=== PATIENT | male | born 1960 | race Caucasian/White ===

== ENCOUNTER → 2017-10-04 | Outpatient (CLI) | payer BC ==
--- NOTE | 2017-10-05 10:38 | MR ---
EXAMINATION TYPE: MR brain wo/w con DATE OF EXAM: 10/04/2017 COMPARISON: NONE HISTORY: Disorder of cranial nerves per order. Left-sided facial numbness for one year with left tinn itus per order and patient. TECHNIQUE: Multiplanar, multisequence images of the brain and brainstem is performed without and with IV contras t, utilizing 10 mL intravenous Gadavist . FINDINGS: Diffusion weighted images demonstrate no evidence of a recent infarct or other diffusion ab normality. There is no worrisome extra-axial fluid collection. The ventricular system and cisternal spaces are normal in size and appearance. The brain volume is age appropriate. There are occasional scattered foci of T2 hyperintensity seen throughout the white matter bilaterally. Approximately 7-10 scattered lesions are seen. For reference there is 9 x 6 mm left frontal periventricular lesion axia l image 17. All other lesions are smaller measuring 3 mm or smaller in size. For reference 2 punctate 1 to 2 mm lesions are seen left parietal region axial image 19. Midline structures demonstrate normal morphology. The craniocervical junction appears within normal limits. Post contrast images demonstrate no abnormal enhancement. The dural venous sinuses appear pa tent. Mild mucosal thickening involving ethmoid sinuses bilaterally is present. Remainder paranasal s inuses are clear. The globes are intact bilaterally.. IMPRESSION: Mild nonspecific white matter changes are felt to most likely basis of products of chroni c small vessel ischemic change. No suspicious enhancement is noted.
== END | disposition home or self-care (01) ==
LOC: RADMRIMAIN 19:32
PROVIDERS: ATTEND Otolaryngology
DX: R90.82 White matter disease, unspecified (principal)
CPT/HCPCS: 70553; A9581

== ENCOUNTER → 2018-06-11 | Outpatient (CLI) | payer BC ==
--- NOTE | 2018-06-12 09:03 | MR ---
EXAMINATION TYPE: MR brain wo/w con DATE OF EXAM: 06/11/2018 COMPARISON: Prior brain MRI 10/04/2017 HISTORY: Anesthesia of skin TECHNIQUE: Multiplanar, multisequence images of the brain and brainstem is performed without and with IV contras t, utilizing 10 mL intravenous Gadavist . FINDINGS: Diffusion weighted images demonstrate no evidence of a recent infarct or other diffusion ab normality. There is no extra-axial fluid collection or significant interval change in white matter s ignal abnormality, some scattered deep white matter hyperintensities are present on inversion recover y T2-weighted sequences as on prior exam, approximately 5 lesions. The ventricular system and cister nal spaces are normal in size and appearance. The brain volume is age appropriate. Midline structures demonstrate normal morphology. The craniocervical junction appears within normal limits. Post contrast images demonstrate no abnormal enhancement. The dural venous sinuses appear pa tent. The visualized sinuses are remarkable for mucosal thickening in the ethmoid air cells, maxillar y sinuses and frontal sinus and the globes are intact. IMPRESSION: Stable brain MRI, no acute abnormality
== END ==
LOC: RADMRIMAIN 18:04
PROVIDERS: ATTEND Family Medicine
DX: R20.0 Anesthesia of skin (principal)
CPT/HCPCS: 70553; A9585

== ENCOUNTER → 2018-10-22 | Outpatient (CLI) | payer BC ==
--- NOTE | 2018-10-23 00:48 | MR ---
EXAMINATION TYPE: MR cervical spine wo con DATE OF EXAM: 10/22/2018 COMPARISON: None HISTORY: Early Cord Compression, Myelopathy TECHNIQUE: Multiplanar, multisequence images of the cervical spine were acquired. Cervical vertebra have normal alignment. There is moderate narrowing of disc spaces at C5-6 and C6-7 with some spurring of the endplates. There is small posterior disc bulging at C4-5 and C6-7. Cervical spinal cord has normal signal pattern. There is no edema. There is developmentally large spinal daisy l. The smallest segment of the spinal canal is 11 mm. Brainstem is intact. Disc herniation at C6-7 is slightly to the left side. There is no cervical hero delisa mass. There is no focal bone destruction. IMPRESSION: Mild posterior central and left side C6-7 disc herniation without spinal stenosis. Developmentally la rge spinal canal. Spondylosis at C5-6 and C6-7. There is no evidence of cord compression.
== END | disposition home or self-care (01) ==
LOC: RADMRIMAIN 17:55
PROVIDERS: ATTEND Psychiatry & Neurology Neurology
DX: M50.223 Other cervical disc displacement at C6-C7 level (principal); M47.812 Spondylosis without myelopathy or radiculopathy, cervical region
CPT/HCPCS: 72141

== ENCOUNTER 2020-12-23 08:53 | Day surgery (SDC) | payer BC ==
[2020-12-21 08:29] VITALS: BMI 29.9
[~2020-12-23 08:53] MED LIST: LACTATED RINGERS 1,000 ML IV SCH; LIDOCAINE 1% (10MG/ML) FOR IV START INTRADERMA PRN
[2020-12-23 09:58] VITALS: RESP 16; TEMP 96.6
[2020-12-23] MEDS ORDERED: LIDOCAINE 1% (10MG/ML) FOR IV START INTRADERMA ONE (09:59)
[2020-12-23] MEDS ORDERED: PROPOFOL 10 MG/ML 20 ML VIAL IV ONE (11:06)
--- NOTE | 2020-12-23 11:23 | P.PCN ---
Date of Procedure: 12/23/20 Procedure(s) Performed: BRIEF HISTORY: Patient is a 60-year-old pleasant male scheduled for an elective colonoscopy as a part of screening for colorectal neoplasia PROCEDURE PERFORMED: Colonoscopy snare polypectomy PREOPERATIVE DIAGNOSIS: Screening for colon cancer. IV sedation per Anesthesia. PROCEDURE: After informed consent was obtained, the patient, was brought into the endoscopy unit. IV sedation was administered by Anesthesia under continuous monitoring. Digital rectal examination was normal. Initially the Olympus CF-160 flexible video colonoscope was then inserted in the rectum, gradually advanced into the cecum without any difficulty. Careful examination was performed as the scope was gradually being withdrawn. Ileocecal valve and the appendiceal orifice were visualized and appeared normal. Prep was excellent. Mucosa of the cecum, ascending colon, transverse colon, appeared normal. In the descending colon there were 2 polyps measuring 5 limited in size which were removed by snare polypectomy. Rest of the descending colon, sigmoid colon, and rectum appeared normal. Retroflexion was performed in the rectum and no lesions were seen. The patient tolerated the procedure well. IMPRESSION: 5 mm 2 descending colon polyps status post polypectomy Rest of the colon appeared normal . RECOMMENDATIONS: Findings of this examination were discussed with the patient as well as his family. She was advised to follow with the biopsy results and if the biopsy reveals adenoma he can have a repeat coloscopy in 5 years
[2020-12-23 11:48] VITALS: BP 137/89; PULSE 61
== END 2020-12-23 12:01 | disposition home or self-care (01) ==
LOC: ORWHC2ENDO 08:53
PROVIDERS: ATTEND Internal Medicine Gastroenterology
DX: Z12.11 Encounter for screening for malignant neoplasm of colon (principal); D12.4 Benign neoplasm of descending colon
CPT/HCPCS: 45385; 88305; J2704

== ENCOUNTER 2024-04-14 17:00 | Observation (INO) | payer MEDICARE, BC ==
--- NOTE | 2024-04-14 17:22 | ED ---
Chest Pain HPI - General Source: patient, RN notes reviewed Mode of arrival: ambulatory Limitations: no limitations - History of Present Illness MD Complaint: chest pain <Jasmina Zamora - Last Filed: 04/14/24 17:20> - General Source: patient, RN notes reviewed Mode of arrival: ambulatory Limitations: no limitations <Neal Thurman - Last Filed: 04/14/24 21:25> - General Chief Complaint: Chest Pain Stated Complaint: chest pain Time Seen by Provider: 04/14/24 17:15 - History of Present Illness Initial Comments: Quick Note: This is a 63-year-old male who presents to the emergency department for chest pain. States that it has been occurring intermittently over the last week but today it has been constant. Pain is described as a pressure sensation in the center of his chest radiating into the back. When this first started he noticed that exercise seem to make it worse, so he tried to stop exercising. Denies any history of heart attacks or cardiac issues. (Jasmina Zamora) Patient is a 63-year-old male present to the emergency department with concerns of chest discomfort. Onset of symptoms was a week ago. Discomfort has been coming and going this past week more constant today. Discomfort was more severe earlier, mild at this time. Currently rated 3/10. Discomfort feels like tightness. No associated dyspnea, nausea, or diaphoresis. There is some radiation towards the back. No history of similar symptoms previously. No history of previous cardiac disease. (Neal Thurman) - Related Data Home Medications Medication Instructions Recorded Confirmed Cholecalciferol (Vitamin D3) 125 mcg PO DAILY 12/21/20 12/23/20 [Vitamin D3 (125 MCG = 5,000 IU)] Gabapentin 300 mg PO HS PRN 12/21/20 12/23/20 Levothyroxine Sodium [Synthroid] 150 mcg PO DAILY 12/21/20 12/23/20 Magnesium 200 mg PO DAILY 12/21/20 12/23/20 [place]-3 Fatty Acids/Fish Oil [Fish 1 each PO DAILY 12/21/20 12/23/20 Oil 1,000 mg Softgel] Allergies Allergy/AdvReac Type Severity Reaction Status Date / Time No Known Allergies Allergy Verified 04/14/24 17:15 Review of Systems ROS Other: All systems not noted in ROS Statement are negative. <Jasmina Zamora - Last Filed: 04/14/24 17:20> ROS Other: All systems not noted in ROS Statement are negative. Constitutional: Denies: fever Eyes: Denies: eye pain ENT: Denies: ear pain Respiratory: Denies: cough, dyspnea Cardiovascular: Reports: as per HPI, chest pain Endocrine: Denies: fatigue Gastrointestinal: Denies: abdominal pain Neurological: Denies: headache, weakness <Neal Thurman - Last Filed: 04/14/24 21:25> ROS Statement: Those systems with pertinent positive or pertinent negative responses have been documented in the HPI. EKG Findings - EKG Results: EKG: interpreted by ERMD (Left axis. Nonspecific intraventricular conduction delay.), sinus rhythm, normal ST/T <Neal Thurman - Last Filed: 04/14/24 21:25> Past Medical History Past Medical History: Thyroid Disorder Additional Past Medical History / Comment(s): "tingling throughout whole body" taking gabapentin History of Any Multi-Drug Resistant Organisms: None Reported Past Surgical History: Hernia Repair Additional Past Surgical History / Comment(s): colonoscopy Past Anesthesia/Blood Transfusion Reactions: No Reported Reaction Past Psychological History: No Psychological Hx Reported Smoking Status: Former smoker Past Alcohol Use History: Occasional Past Drug Use History: None Reported <Jasmina Zamora - Last Filed: 04/14/24 17:20> General Exam Limitations: no limitations <Jasmina Zamora - Last Filed: 04/14/24 17:20> Limitations: no limitations General appearance: alert, in no apparent distress Head exam: Present: normocephalic Eye exam: Present: normal appearance Neck exam: Present: normal inspection Respiratory exam: Present: normal lung sounds bilaterally. Absent: chest wall tenderness Cardiovascular Exam: Present: regular rate, normal rhythm, normal heart sounds Expanded Peripheral pulses: 2+: Radial (R), Radial (L), Posterior Tibialis (R), Posterior Tibialis (L) GI/Abdominal exam: Present: soft. Absent: tenderness Extremities exam: Present: normal inspection. Absent: pedal edema, calf tenderness Neurological exam: Present: alert Psychiatric exam: Present: normal affect, normal mood Skin exam: Present: normal color <Neal Thurman - Last Filed: 04/14/24 21:25> - General Exam Comments Initial Comments: Visual Physical Exam Vital signs reviewed General: Well-appearing, nontoxic, no acute distress. Head: Normocephalic, atraumatic Eyes: PERRLA, EOMI ENT: Airway patent Chest: Nonlabored breathing Skin: No visual rash, normal skin tone Neuro: Alert and oriented 3 Musculoskeletal: No gross abnormalities (Jasmina Zamora) Course Vital Signs 04/14/24 04/14/24 04/14/24 17:11 18:46 18:53 Temperature 97.8 F Pulse Rate 65 65 Pulse Rate [ 67 Hair Tinter ] Respiratory 18 12 Rate Blood Pressure 126/80 138/77 O2 Sat by Pulse 99 98 Oximetry 04/14/24 20:41 Temperature Pulse Rate 60 Pulse Rate [ Hair Tinter ] Respiratory 17 Rate Blood Pressure 134/60 O2 Sat by Pulse 97 Oximetry Chest Pain MDM <Jasmina Zamora - Last Filed: 04/14/24 17:20> <Neal Thurman - Last Filed: 04/14/24 21:25> - MDM I performed the QuickNote portion of this chart. Signed Jasmina Zamora PA-C. (Jasmina Zamora) Was pt. sent in by a medical professional or institution ([facility], [facility], urgent care, hospital, or group home...) When possible be specific @ -No Did you speak to anyone other than the patient for history (EMS, parent, family, police, friend...)? What history was obtained from this source @ -No Did you review nursing and triage notes (agree or disagree)? Why? @ -I reviewed and agree with nursing and triage notes Were old charts reviewed (outside hosp., previous admission, EMS record, old EKG, old radiological studies, urgent care reports/EKG's, group home records)? Report findings @ -No old charts were reviewed Differential Diagnosis (chest pain, altered mental status, abdominal pain women, abdominal pain men, vaginal bleeding, weakness, fever, dyspnea, syncope, headache, dizziness, GI bleed, back pain, seizure, CVA, palpatations, mental health, musculoskeletal)? @ -Differential Chest Pain: Stable Angina, Unstable Angina, STEMI, NSTEMI Aortic Dissection, Pneumothorax, Musculoskeletal, Esophageal Spasm GERD, Cholecystitis, Pancreatitis, Zoster, this is not meant to be an all-inclusive list. EKG interpreted by me (3pts min.). @ -As above X-rays interpreted by me (1pt min.). @ -Chest x-ray shows no acute process CT interpreted by me (1pt min.). @ -None done U/S interpreted by me (1pt. min.). @ -None done What testing was considered but not performed or refused? (CT, X-rays, U/S, labs)? Why? @ -None What meds were considered but not given or refused? Why? @ -None Did you discuss the management of the patient with other professionals (professionals i.e. DrHu, PA, [facility], lab, RT, psych nurse, social media director, supervisor drying and winding, teacher, chief strategy officer, lining caser)? Give summary @ -Case was discussed with Dr. Paredes who will admit covering Dr. Woodward Was smoking cessation discussed for >3mins.? @ -No Was critical care preformed (if so, how long)? @ -No Were there social determinants of health that impacted care today? How? (Homelessness, low income, unemployed, alcoholism, drug addiction, transporta tion, low edu. Level, literacy, decrease access to med. care, care home, rehab)? @ -No Was there de-escalation of care discussed even if they declined (Discuss DNR or withdrawal of care, Hospice)? DNR status @ -No What co-morbidities impacted this encounter? (DM, HTN, Smoking, COPD, CAD, Cancer, CVA, ARF, Chemo, Hep., AIDS, mental health diagnosis, sleep apnea, morbid obesity)? @ -None Was patient admitted / discharged? Hospital course, mention meds given and route, prescriptions, significant lab abnormalities, going to OR and other pertinent info. @ -Patient presents with chest discomfort. Patient reevaluated and resting comfortably in bed. Patient updated on results and plan. Patient will be admitted with cardiac consult. Admission orders written. Undiagnosed new problem with uncertain prognosis? @ -No Drug Therapy requiring intensive monitoring for toxicity (Heparin, Nitro, Insulin, Cardizem)? @ -No Were any procedures done? @ -No Diagnosis/symptom? @ -Chest pain Acute, or Chronic, or Acute on Chronic? @ -Acute Uncomplicated (without systemic symptoms) or Complicated (systemic symptoms)? @ -Default Side effects of treatment? @ -No Exacerbation, Progression, or Severe Exacerbation? @ -No Poses a threat to life or bodily function? How? (Chest pain, [place], [place], pneumonia, PE, COPD, DKA, ARF, appy, cholecystitis, CVA, Diverticulitis, Homicidal, Suicidal, threat to staff... and all critical care pts) @ -Threat to cardiac function (Neal Thurman) Disposition <Jasmina Zamora - Last Filed: 04/14/24 17:20> Is patient prescribed a controlled substance at d/c from ED?: No Time of Disposition: 21:25 <Neal Thurman - Last Filed: 04/14/24 21:25> Clinical Impression: Chest pain Disposition: ADMITTED IP TO THIS HOSP Referrals: Vin Woodward MD [Primary Care Provider] - 1-2 days
--- NOTE | 2024-04-14 17:48 | XR ---
EXAMINATION TYPE: XR chest 2V DATE OF EXAM: 04/14/2024 5:43 PM COMPARISON: None TECHNIQUE: XR chest 2V Frontal and lateral views of the chest. CLINICAL INDICATION:Male, 63 years old with history of Chest Pain; FINDINGS: Lungs/Pleura: There is no evidence of pleural effusion, focal consolidation, or pneumothorax. Pulmonary vascularity: Unremarkable. Heart/mediastinum: Cardiomediastinal silhouette is unremarkable. Musculoskeletal: No acute osseous pathology. IMPRESSION: No acute cardiopulmonary disease/process. [facility], , 04/14/2024 5:45 PM
[2024-04-14] MEDS: ASPIRIN 81 MG PO STA (18:49)
[2024-04-14] MEDS: NITROGLYCERIN OINT 1 INCH/GM PACKET TOPICAL STA (18:50)
[2024-04-14 19:01] LABS: ALT 32 U/L (4-49); AST 29 U/L (17-59); African American GFR (CKD) 85 (>60 ml/min/1.73 sqM); Albumin 4.4 g/dL (3.5-5.0); Alkaline Phosphatase 59 U/L (38-126); Anion Gap 8 mmol/L; Blood Urea Nitrogen 24 mg/dL (9-20); Calcium 9.6 mg/dL (8.4-10.2); Carbon Dioxide 29 mmol/L (22-30); Chloride 101 mmol/L (98-107); Glucose 95 mg/dL (74-99); Magnesium 2.4 mg/dL (1.6-2.3); Non-African American GFR(CKD) 74 (>60 ml/min/1.73 sqM); Potassium 3.9 mmol/L (3.5-5.1); Sodium 138 mmol/L (137-145); Total Bilirubin 0.5 mg/dL (0.2-1.3); Total Protein 7.2 g/dL (6.3-8.2)
[2024-04-14 19:20] LABS: Partial Thromboplastin Time 25.5 sec (22.0-30.0); Prothrombin Time 10.8 sec (10.0-12.5)
[2024-04-14 19:26] LABS: Basophils % (A) 0 %; Eosinophils # (A) 0.2 k/uL (0-0.7); Eosinophils % (A) 3 %; HCT 45.3 % (39.0-53.0); Lymphocytes # (A) 2.2 k/uL (1.0-4.8); Lymphocytes % (A) 35 %; MCH 29.7 pg (25.0-35.0); MCHC 33.2 g/dL (31.0-37.0); MCV 89.3 fL (80.0-100.0); Mean Platelet Volume 7.3; Monocytes # (A) 0.4 k/uL (0-1.0); Monocytes % (A) 7 %; Neutrophils # (A) 3.2 k/uL (1.3-7.7); Neutrophils % (A) 52 %; Platelet Count 227 k/uL (150-450); RBC 5.07 m/uL (4.30-5.90); RDW 12.7 % (11.5-15.5); WBC 6.1 k/uL (3.8-10.6)
[2024-04-14] MEDS ORDERED: NITROGLYCERIN SL TABS 0.4 MG TAB SUBLINGUAL PRN (21:25)
[2024-04-14] MEDS: NITROGLYCERIN OINT 1 INCH/GM PACKET TOPICAL SCH (23:40)
[2024-04-15] MEDS ORDERED: GABAPENTIN 300 MG CAP PO PRN (02:59)
--- NOTE | 2024-04-15 03:05 | P.HPIM ---
History of Present Illness H&P Date: 04/14/24 Patient is a 63-year-old male with past medical history significant for hypothyroidism, hyperlipidemia, and generalized neuropathy presenting to the emergency department today for chest pain. He reports intermittent chest pain for about 10 days, rates it 8/10, states that it is in the center and radiates to the left, to his back, and into his left arm, describes it as tightness/pressure. He notes that the pain seems to have worsened after eating and states that it sometimes feels like heartburn but not relieved by Tums. He denies diaphoresis, nausea, any associated symptoms. He denies any relieving factors. He admits to chest pain at rest or with minimal exertion. Chest pain at the time of the interview is 2/10. He denies a cardiac history. He denied recent LE swelling/pain or recent travel. Reports that the pain is non- pleuritic. He recently started taking a statin shortly before the chest pain symptoms started. He denies fever/chills, nausea/vomiting, dyspnea, abdominal pain, myalgias, hematuria, hematochezia/melena. Initial vitals: BP 126/80, CT 65 bpm, 97.8 F, 99% on room air Initial labs: WBC 6.1, hemoglobin 15, platelets 227, D-dimer 0.18, sodium 138, potassium 3.9, chloride 101, BUN 24, creatinine 1.06, magnesium 2.4, troponin x 2: <0.012 Initial EKG: Normal sinus rhythm with ventricular rate 69 bpm, left axis deviation, wide QRS 136 ms, QTc 439 ms ED documentation reviewed. Given aspirin 324 mg p.o. x 1, Nitro-Bid ointment 1 inch topical x 1 Review of systems: Pertinent positives and negatives as discussed in HPI, a complete review of systems was performed and all other systems are negative. Social history: Tobacco: Quit 40 years ago Alcohol: 2-3 beers on weekends Recreational drugs: Marijuana gummies for sleep 1x/week Travel: None reported Sick contacts: None reported Physical examination: Vital signs reviewed General: Nontoxic, no distress, appears stated age, well-appearing, overweight Derm: Warm, dry, intact, no cyanosis Head: Atraumatic, normocephalic, symmetric Eyes: EOMI, anicteric sclera, PERRL Ears: Normal appearing, no external lesions, hearing intact Nose: Normal appearing, no external lesions Mouth: No lip lesion, mucus membranes moist, no tonsilar hypertrophy or exudate Neck: Supple, without lesions, trachea midline Cardiovascular: S1-S2 regular, no murmur, no pedal edema Lungs: CTA bilateral, no wheezes, no rhonchi, no rales, no accessory muscle use Abdominal: Soft, non-tender to palpation, bowel sounds present Extremities: Muscle strength 5/5 in all extremities, radial pulses 2+ bilateral, posterior tibial pulses 2+ bilateral Neuro: Alert, oriented x 4, gross neurological examination did not reveal any focal deficits. Cranial nerves II to XII grossly intact. Psych: Appropriate affect and mood Assessment and Plan: Patient is a 63-year-old male with a past medical history significant for hypothyroidism, hyperlipidemia, neuropathy admitted for chest pain. Active #. Atypical chest pain, rule out ACS Troponin x 2: <0.012 D-dimer 0.18 Monitor vital signs Continue telemetry monitoring Trend troponin Obtaining 2D echo Obtain lipid panel Continue with nitro sublingual 0.4 mg as needed for chest pain Cardiology consulted Continue with aspirin 81 mg p.o. daily (received 325 mg p.o. x 1 in the ED) Begin atorvastatin 80 mg daily #. Hypermagnesemia Magnesium 2.4 Monitor magnesium Hold home magnesium supplements Chronic #. Hypothyroidism Continue Synthroid 150 mcg p.o. daily DVT prophylaxis: Lovenox 40 mg subcutaneous daily The patient is admitted with an anticipated less than 2 midnight stay for evaluation of chest pain CODE STATUS: Full code Anticipated discharge place: Pending clinical course Past Medical History Past Medical History: Thyroid Disorder Additional Past Medical History / Comment(s): "tingling throughout whole body" taking gabapentin History of Any Multi-Drug Resistant Organisms: None Reported Past Surgical History: Hernia Repair Additional Past Surgical History / Comment(s): colonoscopy Past Anesthesia/Blood Transfusion Reactions: No Reported Reaction Past Psychological History: No Psychological Hx Reported Smoking Status: Former smoker Past Alcohol Use History: Occasional Past Drug Use History: None Reported Medications and Allergies Home Medications Medication Instructions Recorded Confirmed Type Cholecalciferol (Vitamin D3) 125 mcg PO DAILY 12/21/20 12/23/20 History [Vitamin D3 (125 MCG = 5,000 IU)] Gabapentin 300 mg PO HS PRN 12/21/20 12/23/20 History Levothyroxine Sodium [Synthroid] 150 mcg PO DAILY 12/21/20 12/23/20 History Magnesium 200 mg PO DAILY 12/21/20 12/23/20 History [place]-3 Fatty Acids/Fish Oil [Fish 1 each PO DAILY 12/21/20 12/23/20 History Oil 1,000 mg Softgel] Allergies Allergy/AdvReac Type Severity Reaction Status Date / Time No Known Allergies Allergy Verified 04/14/24 17:15 Physical Exam Vitals: Vital Signs Temp Pulse Pulse Resp BP Pulse Ox 04/14/24 20:41 60 17 134/60 97 04/14/24 18:53 67 04/14/24 18:46 65 12 138/77 98 04/14/24 17:11 97.8 F 65 18 126/80 99 Intake and Output 04/14/24 04/14/24 04/14/24 06:59 14:59 22:59 Other: Weight 92.079 kg Results CBC & Chem 7: 04/14/24 18:37 04/14/24 18:37 Labs: Abnormal Lab Results - Last 24 Hours (Table) 04/14/24 Range/Units 18:37 BUN 24 H (9-20) mg/dL Magnesium 2.4 H (1.6-2.3) mg/dL Thrombosis Risk Factor Assmnt - DVT/VTE Prophylaxis DVT/VTE Prophylaxis: Pharmacologic Prophylaxis ordered - Choose All That Apply Each Factor Represents 1 point: Obesity (BMI >25) Each Risk Factor Represents 2 Points: Age 61-74 years Thrombosis Risk Factor Assessment Total Risk Factor Score: 3 Thrombosis Risk Factor Assessment Level: Moderate Risk
[2024-04-15] MEDS: ATORVASTATIN 80 MG TAB PO STA (04:48)
[2024-04-15] MEDS: LEVOTHYROXINE 75 MCG TAB PO SCH (06:43)
[2024-04-15 08:54] LABS: Chol/HDL Ratio 3.81 Ratio; LDL Cholesterol,Calculated 82.7 mg/dL (0.0-131.0); VLDL Calculation 19.78 mg/dL (5.00-40.00)
[2024-04-15] MEDS ORDERED: ASPIRIN 325 MG TAB PO SCH (09:00)
[2024-04-15 09:05] VITALS: RESP 16
[2024-04-15] MEDS: ENOXAPARIN 40 MG/0.4 ML SYRINGE SQ SCH (09:26)
[2024-04-15] MEDS: ASPIRIN 81 MG PO SCH (09:26)
--- NOTE | 2024-04-15 11:07 | P.CRDCN ---
History of Present Illness History of present illness: HISTORY OF PRESENT ILLNESS: This is a 63-year-old male with a past medical history significant for hyperlipidemia, hypothyroidism, former nicotine dependence, occasional alcohol use, and occasional marijuana use. Patient does not follow with a family law specialist. We have been asked to see the patient in consultation for chest pain. Patient examined at the bedside in the emergency room. Patient states his cholesterol levels have been borderline and initially he was not wanting to be started on a statin. He underwent CT calcium scoring and 03/30/2024 with a total calcium score of 488.8. He was started on Lipitor 20 mg daily by his PCP. He states since getting his CAT scan done he has been having chest discomfort on and off. He states the pain is in the middle of his chest and sometimes goes into his back and sometimes into his left arm. He states yesterday after breakfast he be shereen to have the discomfort. He states that he took Tums with no relief. He describes it as a burning type sensation. He states it does not seem to be exertionally related. He is a non-smoker. He reports occasional alcohol use. He also reports occasional marijuana use in the form of Gummies to help him sleep. He denies any family history of premature coronary artery disease DIAGNOSTICS: - EKG reveals sinus mechanism with no signs of acute ischemia. - Chest xray negative for acute process. - Laboratory data: WBC 6.1. Hemoglobin 15.0. Platelet count 227. D-dimer 0.18. Sodium 138. Potassium 3.9. BUN 24. Creatinine 1.06. Magnesium 2.4. Troponin negative x 3. - Current home cardiac medications include Lipitor 20 mg at night - No previous echocardiogram, stress test, or cardiac catheterization available in EMR for review REVIEW OF SYSTEMS: At the time of my exam: CONSTITUTIONAL: Denies fever or chills. HEENT: Denies blurred vision, vision changes, or eye pain. Denies hemoptysis CARDIOVASCULAR: Denies chest pain. Denies orthopnea. Denies PND. Denies palpitations RESPIRATORY: Denies shortness of breath. GASTROINTESTINAL: Denies abdominal pain. Denies nausea or vomiting. HEMATOLOGIC: Denies bleeding disorders. GENITOURINARY: Denies any blood in urine. SKIN: Denies pruitis. Denies rash. PHYSICAL EXAM: VITAL SIGNS: Reviewed. GENERAL: Well-developed in no acute distress. HEENT: Head is normocephalic. Pupils are equal, round. Sclerae anicteric. Mucous membranes of the mouth are moist. Neck supple. No JVD or thyromegaly LUNGS: Respirations even and unlabored. Lungs essentially clear to auscultation bilaterally. HEART: Regular rate and rhythm. S1 and S2 heard. ABDOMEN: Soft. Nondistended. Nontender. EXTREMITIES: Normal range of motion. No clubbing or cyanosis. Peripheral pulses intact. No lower extremity edema NEUROLOGIC: Awake and alert. Oriented x 3. ASSESSMENT: Chest pain, troponin negative x [address] calcium score of 48.8, performed on 03/30/2024 Hyperlipidemia Hypothyroidism Former nicotine dependence Occasional alcohol use Occasional marijuana use PLAN: An acute coronary event has been ruled out Obtain 2D echo to assess cardiac structure and function Resume home cardiac medications including Lipitor 20 mg at night Decrease aspirin to 81 mg daily Patient to undergo stress echocardiogram today Abstinence from marijuana recommended If stress echocardiogram is negative, patient may be discharged home from a cardiac standpoint Patient to follow-up in the office postdischarge with Dr. Briceno Nurse practitioner note has been reviewed by physician. Signing provider agrees with the documented findings, assessment, and plan of care documented by RETORT CONDENSER ATTENDANT as a scribe. Past Medical History Past Medical History: Thyroid Disorder Additional Past Medical History / Comment(s): "tingling throughout whole body" taking gabapentin History of Any Multi-Drug Resistant Organisms: None Reported Past Surgical History: Hernia Repair Additional Past Surgical History / Comment(s): colonoscopy Past Anesthesia/Blood Transfusion Reactions: No Reported Reaction Past Psychological History: No Psychological Hx Reported Smoking Status: Former smoker Past Alcohol Use History: Occasional Past Drug Use History: None Reported Medications and Allergies Home Medications Medication Instructions Recorded Confirmed Type Gabapentin 300 mg PO DAILY PRN 12/21/20 04/15/24 History Atorvastatin [Lipitor] 20 mg PO HS 04/15/24 04/15/24 History Fish Oil(Unknown Dose) 1 cap PO DAILY 04/15/24 04/15/24 History Levothyroxine Sodium [Synthroid] 125 mcg PO DAILY 04/15/24 04/15/24 History Turmeric(Unknown Dose) 1 tab PO DAILY 04/15/24 04/15/24 History Vitamin E (Dl,Tocopheryl Acet) 2,000 unit PO DAILY 04/15/24 04/15/24 History [Vitamin E (1000 Iu = 450 MG)] Allergies Allergy/AdvReac Type Severity Reaction Status Date / Time No Known Allergies Allergy Verified 04/14/24 17:15 Physical Exam Vitals: Vital Signs Temp Pulse Pulse Resp BP BP Pulse Ox 04/15/24 07:00 97.9 F 58 L 16 119/74 97 04/15/24 04:57 98.2 F 62 14 118/82 95 04/15/24 00:41 98.0 F 57 L 16 107/75 95 04/14/24 20:41 60 17 134/60 97 04/14/24 18:53 67 04/14/24 18:46 65 12 138/77 98 04/14/24 17:11 97.8 F 65 18 126/80 99 Intake and Output 04/14/24 04/15/24 04/15/24 22:59 06:59 14:59 Other: Weight 92.079 kg Results 04/14/24 18:37 04/14/24 18:37 Cardiac Enzymes 04/14/24 04/14/24 04/14/24 Range/Units 18:37 18:37 21:40 AST 29 (17-59) U/L Troponin I <0.012 <0.012 (0.000-0.034) ng/mL 04/15/24 Range/Units 01:10 AST (17-59) U/L Troponin I <0.012 (0.000-0.034) ng/mL Coagulation 04/14/24 Range/Units 18:37 PT 10.8 (10.0-12.5) sec APTT 25.5 (22.0-30.0) sec Lipids 04/15/24 Range/Units 01:16 Triglycerides 98.90 (0.00-149.00) mg/dL Cholesterol 139.00 (0.00-200.00) mg/dL HDL Cholesterol 36.50 L (40.00-60.00) mg/dL Cholesterol/HDL Ratio 3.81 Ratio CBC 04/14/24 Range/Units 18:37 WBC 6.1 (3.8-10.6) k/uL RBC 5.07 (4.30-5.90) m/uL Hgb 15.0 (13.0-17.5) gm/dL Hct 45.3 (39.0-53.0) % Plt Count 227 (150-450) k/uL Comprehensive Metabolic Panel 04/14/24 Range/Units 18:37 Sodium 138 (137-145) mmol/L Potassium 3.9 (3.5-5.1) mmol/L Chloride 101 (98-107) mmol/L Carbon Dioxide 29 (22-30) mmol/L BUN 24 H (9-20) mg/dL Creatinine 1.06 (0.66-1.25) mg/dL Glucose 95 (74-99) mg/dL Calcium 9.6 (8.4-10.2) mg/dL AST 29 (17-59) U/L ALT 32 (4-49) U/L Alkaline Phosphatase 59 (38-126) U/L Total Protein 7.2 (6.3-8.2) g/dL Albumin 4.4 (3.5-5.0) g/dL Current Medications Generic Name Dose Route Start Last Admin Trade Name Freq PRN Reason Stop Dose Admin Aspirin 81 mg 04/15/24 09:00 Aspirin 81 Mg PO DAILY [facility] Atorvastatin Calcium 80 mg 04/15/24 21:00 Atorvastatin 80 Mg Tab PO HS SARAH Enoxaparin Sodium 40 mg 04/15/24 09:00 Enoxaparin 40 Mg/0.4 Ml Syringe SQ DAILY [facility] Gabapentin 300 mg 04/15/24 02:59 Gabapentin 300 Mg Cap PO HS PRN Pain Levothyroxine Sodium 150 mcg 04/15/24 06:30 04/15/24 06:43 Levothyroxine 75 Mcg Tab PO 150 mcg DAILY@0630 [facility] Administration Nitroglycerin 0.4 mg 04/14/24 21:25 Nitroglycerin Sl Tabs 0.4 Mg Tab SUBLINGUAL Q5M PRN Chest Pain Intake and Output 04/14/24 04/15/24 04/15/24 22:59 06:59 14:59 Other: Weight 92.079 kg 04/14/24 18:37 04/14/24 18:37
[2024-04-15] MEDS ORDERED: MAG HYDROX/AL HYDROX/SIMETH 30 ML CUP PO PRN (12:06)
--- NOTE | 2024-04-15 12:12 | P.PN ---
Subjective Progress Note Date: 04/15/24 Hospital course: Patient is a very pleasant 63-year-old male with a past medical history of hypothyroidism and generalized peripheral neuropathy/paresthesias taking gabapentin. He presented to the emergency department on 04/14/2024 with a chief complaint of chest pain. Upon arrival to our facility, patient underwent evaluation in the emergency department. Vital signs upon arrival show blood pressure 126/80, heart rate 65, respiratory rate 18, temp 97.8 F, and SpO2 of 99% on room air. EKG completed showing normal sinus rhythm at 69 bpm with no noted T wave or ST abnormality showing no signs of acute ischemia upon personal review and interpretation. Chest x-ray completed negative for acute cardiopulmonary process. Labs completed and reviewed. CBC unremarkable. Coagulation profile normal findings. D-dimer was negative at 0.18. BMP showing mild prerenal azotemia with BUN of 24. Blood glucose was 95. Magnesium was 2.4. Liver profile unremarkable. Troponin was negative at less than 0.012. Patient admitted under our services with consultation to cardiology. Troponins were trended all negative at less than 0.012. Lipid profile unremarkable with exception of low HDL of 36.50. Repeat morning EKG completed again showing normal sinus rhythm at 62 bpm with no noted T wave or ST abnormality showing no signs of acute ischemia upon personal review and interpretation. Physical exam: Vital signs reviewed and stable. General: Nontoxic, no distress and appears stated age. Derm: Skin warm and dry, normal coloration for ethnicity. Head: Atraumatic, normocephalic and symmetric. Eyes: EOM's intact, no lid lag, and anicteric sclera Mouth: no lip lesions, mucus membranes moist Cardiovascular: regular rate and rhythm with normal S1S2, no murmur, positive po sterior tibial pulses bilaterally, and cap refill < 2 seconds. Lungs: Respirations even, regular, and unlabored on room air. Lungs CTA bilaterally, no rhonchi, no rales, no wheezing, and no accessory muscle usage. Abdominal: soft, nontender to palpation, no guarding, no appreciable organomegaly Ext: ROM intact. No gross muscle atrophy, no edema, no contractures Neuro: Speech clear, face symmetrical and CN II-XII grossly intact with no noted focal neuro deficits Psych: Alert and oriented to person, place, time, and situation. Appropriate and pleasant affect. Assessment and Plan of Care: Chest pain, rule out acute coronary event -Cardiology consulted, discussed plan of care with supervisor cellars and cardiac BUSINESS PROJECT MANAGER. Patient to undergo echocardiogram and stress test. -Telemetry monitoring -Troponins trended and were all negative at less than 0.012 x 3 draws. -Continue aspirin 81 mg daily and atorvastatin 80 mg daily. -Lipid profile unremarkable with exception of low HDL of 36.50. -Echocardiogram to be completed. Hypothyroidism -Continue daily medication regimen with levothyroxine 150 mcg daily. Generalized peripheral neuropathy/paresthesias -Continue gabapentin 300 mg daily as needed for neuropathic pain. Data reviewed: Morning labs reviewed. Troponins were trended all negative at less than 0.012. Lipid profile unremarkable with exception of low HDL of 36.50. Repeat morning EKG completed again showing normal sinus rhythm at 62 bpm with no noted T wave or ST abnormality showing no signs of acute ischemia upon personal review and interpretation. Vital signs reviewed. Blood pressure 119/74, heart rate 58, respiratory rate 16, temp 97.9 F, and SpO2 of 97% on room air. CODE STATUS: Full code DVT prophylaxis: Lovenox Discussed with: Patient, supervisor cellars, and cardiac BUSINESS PROJECT MANAGER Anticipated discharge date: Pending completion of stress test and echocardiogram. Anticipated discharge place: Home Patient was seen independently by Nurse Pracitioner. This document was prepared using [employer] dictation software. Please allow for errors in vocational nurse, while rare they do occur. Sander Marrero, BUSINESS PROJECT MANAGER rendered care for this patient independently, reviewed the findings and plan as documented in the note above. I did not physically speak with or examine the patient on this date. Objective - Vital Signs Vital signs: Vital Signs Temp 98.2 F 04/15/24 04:57 Pulse 62 04/15/24 04:57 Resp 14 04/15/24 04:57 BP 118/82 04/15/24 04:57 Pulse Ox 95 04/15/24 04:57 FiO2 Intake & Output 04/14/24 04/15/24 04/15/24 18:59 06:59 18:59 Weight 92.079 kg - Labs CBC & Chem 7: 04/14/24 18:37 04/14/24 18:37 Labs: Abnormal Lab Results - Last 24 Hours (Table) 04/14/24 04/15/24 Range/Units 18:37 01:16 BUN 24 H (9-20) mg/dL Magnesium 2.4 H (1.6-2.3) mg/dL HDL Cholesterol 36.50 L (40.00-60.00) mg/dL
[2024-04-15 13:07] VITALS: BP 108/70; PULSE 77; TEMP 97.5
--- NOTE | 2024-04-15 13:29 | P.DS ---
Providers Date of admission: 04/14/24 21:26 Expected date of discharge: 04/15/24 Attending physician: Con Paredes MD Consults: 04/14/24 21:25 Consult Physician Urgent Consulting Provider: Rasahd Rosenbaum Consult Reason/Comments: cp Do you want consulting provider notified?: Yes Primary care physician: Vin Devine [facility] Course: Discharge Diagnosis: Chest pain, acute coronary event ruled out. Hypothyroidism. Continue daily medication regimen with levothyroxine 150 mcg daily. Generalized peripheral neuropathy/paresthesias. Continue gabapentin 300 mg daily as needed for neuropathic pain. Hospital Course: Patient is a very pleasant 63-year-old male with a past medical history of hyp othyroidism and generalized peripheral neuropathy/paresthesias taking gabapentin. He presented to the emergency department on 04/14/2024 with a chief complaint of chest pain. Upon arrival to our facility, patient underwent evaluation in the emergency department. Vital signs upon arrival show blood pressure 126/80, heart rate 65, respiratory rate 18, temp 97.8 F, and SpO2 of 99% on room air. EKG completed showing normal sinus rhythm at 69 bpm with no noted T wave or ST abnormality showing no signs of acute ischemia upon personal review and interpretation. Chest x-ray completed negative for acute cardiopulmonary process. Labs completed and reviewed. CBC unremarkable. Coagulation profile normal findings. D-dimer was negative at 0.18. BMP showing mild prerenal azotemia with BUN of 24. Blood glucose was 95. Magnesium was 2.4. Liver profile unremarkable. Troponin was negative at less than 0.012. Patient admitted under our services with consultation to cardiology. Troponins were trended all negative at less than 0.012. Lipid profile unremarkable with exception of low HDL of 36.50. Repeat morning EKG completed again showing normal sinus rhythm at 62 bpm with no noted T wave or ST abnormality showing no signs of acute ischemia upon personal review and interpretation. Received notification from cardiology PUBLIC TRANSIT BUS DRIVER that cardiac stress test and echocardiogram are both normal findings and patient is cleared from cardiac perspective for discharge. Echocardiogram and stress test report is not available as corrections counselor reports system having difficulties transferring reports but did report they reviewed and patient is cleared from their perspective. Patient is medically optimized and stable for discharge home at this time. Patient to follow-up outpatient with PCP in 1 to 2 days and with corrections counselor in 1 to 2 weeks. Physical exam: Vital signs reviewed and stable. General: Nontoxic, no distress and appears stated age. Derm: Skin warm and dry, normal coloration for ethnicity. Head: Atraumatic, normocephalic and symmetric. Eyes: EOM's intact, no lid lag, and anicteric sclera Mouth: no lip lesions, mucus membranes moist Cardiovascular: regular rate and rhythm with normal S1S2, no murmur, positive posterior tibial pulses bilaterally, and cap refill < 2 seconds. Lungs: Respirations even, regular, and unlabored on room air. Lungs CTA bilaterally, no rhonchi, no rales, no wheezing, and no accessory muscle usage. Abdominal: soft, nontender to palpation, no guarding, no appreciable organomegaly Ext: ROM intact. No gross muscle atrophy, no edema, no contractures Neuro: Speech clear, face symmetrical and CN II-XII grossly intact with no noted focal neuro deficits Psych: Alert and oriented to person, place, time, and situation. Appropriate and pleasant affect. A total of 31 minutes of time were spent preparing this complex discharge summary. Pt was discharged on 04/15/2024 at 1:31 PM. Patient was seen independently by Nurse Practitioner. This document was prepared using [employer] dictation software. Please allow for errors in records supervisor while rare they do occur. Sander Marrero NP rendered care for this patient independently, reviewed the findings and plan as documented in the note above. I did not physically speak with or examine the patient on this date. Patient Condition at Discharge: Stable Plan - Discharge Summary Discharge Rx Participant: No New Discharge Prescriptions: New Famotidine [Pepcid] 20 mg PO DAILY 30 Days #30 tab Continue Gabapentin 300 mg PO DAILY PRN PRN Reason: Pain Fish Oil(Unknown Dose) 1 cap PO DAILY Turmeric(Unknown Dose) 1 tab PO DAILY Levothyroxine Sodium [Synthroid] 125 mcg PO DAILY Atorvastatin [Lipitor] 20 mg PO HS Vitamin E (Dl,Tocopheryl Acet) [Vitamin E (1000 Iu = 450 MG)] 2,000 unit PO DAILY Discharge Medication List Gabapentin 300 mg PO DAILY PRN 12/21/20 [History] Atorvastatin [Lipitor] 20 mg PO HS 04/15/24 [History] Famotidine [Pepcid] 20 mg PO DAILY 30 Days #30 tab 04/15/24 [Rx] Fish Oil(Unknown Dose) 1 cap PO DAILY 04/15/24 [History] Levothyroxine Sodium [Synthroid] 125 mcg PO DAILY 04/15/24 [History] Turmeric(Unknown Dose) 1 tab PO DAILY 04/15/24 [History] Vitamin E (Dl,Tocopheryl Acet) [Vitamin E (1000 Iu = 450 MG)] 2,000 unit PO DAILY 04/15/24 [History] Follow up Appointment(s)/Referral(s): Kishor Briceno MD [Medical Doctor] - 1 Week Vin Woodward MD [Primary Care Provider] - 1-2 days Activity/Diet/Wound Care/Special Instructions: Activity: As tolerated. Take breaks as needed. Diet: Heart healthy and carb consistent diet. Avoid salts, or foods with hidden salts such as canned or boxed foods and frozen dinners. Extra salt makes your heart work harder and traps the fluid in your body for longer. Special Instructions: Take all of your medications as directed and remember to keep all of your doctor's appointments and follow-up as needed. Thank you for allowing us to participate in your care, it was truly a pleasure having you for our patient!!! Discharge Disposition: HOME SELF-CARE
--- NOTE | 2024-04-15 14:21 | ECHOS ---
Stress Results Protocol: Wilber Exercise Duration (min:sec): [address] Depression (mm): Angina Score: Shoemaker Score: Resting HR: 53 Resting BP: 121 / 78 Max Predicted HR: 155 Target HR: 132 METS: 12.1 Peak HR: 149 Peak BP: 149 / 69 96 % Mac Predicated HR Double Product: [id number] Stress Summary: BP Response: Reason for Termination: Reached target heart rate or work-load Cardiac Symptoms: No Symptoms ECG Analysis Resting ECG: Normal sinus rhythm, normal axis Stress ECG: No significant ST-T wave changes that are diagnostic for ischemia by ST segment analysis Arrhythmia: No significant arrhythmias or ectopic beats noticed during the stress test Echo Analysis Resting Echo: Normal global and segmental systolic function with no resting regional wall motion abnormality Peak Echo Analysis: Normal augmentation of global and segmental systolic function with no stress-induced regional wall motion abnormality CONCLUSIONS Overall normal treadmill echo stress test Good exercise tolerance achieving 12.1 METS Normal hemodynamic and clinical response to treadmill exercise Nonischemic ECG and echocardiographic response to treadmill exercise MTDD
[2024-04-15] MEDS: FAMOTIDINE 20 MG TAB PO SCH (15:04)
[2024-04-15] MEDS ORDERED: ATORVASTATIN 80 MG TAB PO SCH (21:00)
[2024-04-15] MEDS ORDERED: ATORVASTATIN 20 MG TAB PO SCH (21:00)
--- NOTE | 2024-04-16 11:44 | CA ---
Transthoracic Echo Report Name: Eliu Almendarez Age: 63 Gender: M : 1960 Exam Date: 04/15/2024 11:07 Exam Location: [facility] Ht (in): 71 Wt (lb): 203 Ordering Physician: Tamia Patiño MD Attending/Referring Phys: Assistant Shift Supervisor Lauren Naranjo RDCS Procedure CPT: Indications: Chest Pain Cardiac Hx: Technical Quality: Good Contrast 1: Total Dose (mL): Contrast 2: Total Dose (mL): MEASUREMENTS (Male / Female) Normal Values 2D ECHO LV Diastolic Diameter PLAX 6.0 cm 4.2 - 5.9 / 3.9 - 5.3 cm LV Systolic Diameter PLAX 4.2 cm IVS Diastolic Thickness 0.7 cm 0.6 - 1.0 / 0.6 - 0.9 cm LVPW Diastolic Thickness 0.7 cm 0.6 - 1.0 / 0.6 - 0.9 cm LV Relative Wall Thickness 0.2 LVOT Diameter 3.0 cm LV Diastolic Volume MOD BP 130.5 cm??? 67 - 155 / 56 - 104 cm??? LV Systolic Volume MOD BP 51.8 cm??? 22 - 58 / 19 - 49 cm??? LV Ejection Fraction MOD BP 60.3 % >= 55 % LV Cardiac Index MOD BP 2759.7 cm???/min???m??? LV Diastolic Volume MOD 4C 113.0 cm??? LV Systolic Volume MOD 4C 42.7 cm??? LV Ejection Fraction MOD 4C 62.2 % LV Cardiac Index MOD 4C 2464.5 cm???/min???m??? LV Diastolic Length 4C 8.5 cm LV Systolic Length 4C 7.0 cm LV Diastolic Volume MOD 2C 134.5 cm??? LV Systolic Volume MOD 2C 54.8 cm??? LV Ejection Fraction MOD 2C 59.3 % LV Cardiac Index MOD 2C 2797.0 cm???/min???m??? LV Diastolic Length 2C 9.6 cm LV Systolic Length 2C 8.1 cm LA Volume 61.1 cm??? 18 - 58 / 22 - 52 cm??? LA Volume Index 28.2 cm???/m??? 16 - 28 cm???/m??? DOPPLER AV Peak Velocity 122.0 cm/s AV Peak Gradient 5.9 mmHg AV Mean Velocity 79.6 cm/s AV Mean Gradient 3.0 mmHg AV Velocity Time Integral 22.1 cm LVOT Peak Velocity 92.5 cm/s LVOT Peak Gradient 3.4 mmHg LVOT Velocity Time Integral 16.8 cm LVOT Stroke Volume 121.2 cm??? LVOT Stroke Volume Index 57.1 ml/m??? LVOT Cardiac Index 4251.4 cm???/min???m??? AV Area Cont Eq vti 5.5 cm??? AV Area Cont Eq pk 5.5 cm??? MV Area PHT 3.3 cm??? Mitral E Point Velocity 42.6 cm/s Mitral A Point Velocity 54.7 cm/s Mitral E to A Ratio 0.8 MV Deceleration Time 230.2 ms TR Peak Velocity 225.2 cm/s TR Peak Gradient 20.3 mmHg Right Atrial Pressure 5.0 mmHg Pulmonary Artery Systolic Pressu 25.3 mmHg Right Ventricular Systolic Press 25.3 mmHg PV Peak Velocity 82.2 cm/s PV Peak Gradient 2.7 mmHg FINDINGS Left Ventricle Left ventricular ejection fraction is estimated at 55-60 %. Mildly increased left ventricular diastolic diameter. Left ventricular wall thickness normal. No obvious regional wall motion abnormalities. Right Ventricle Normal right ventricular size and function. Right ventricular systolic pressure within normal limits. Right Atrium Normal right atrial size. Left Atrium Mildly increased left atrial volume. Mitral Valve Structurally normal mitral valve. No mitral stenosis. No evidence for mitral valve prolapse. Trace to mild mitral regurgitation. Aortic Valve Trileaflet aortic valve. No aortic stenosis. Trace aortic regurgitation. Tricuspid Valve Structurally normal tricuspid valve. No tricuspid stenosis. Mild tricuspid regurgitation. Pulmonic Valve Structurally normal pulmonic valve. No pulmonic stenosis. Trace pulmonic regurgitation. Pericardium No pericardial effusion. Aorta Mildly dilated aortic annulus. Normal ascending aorta. CONCLUSIONS Left ventricular ejection fraction is estimated at 55-60 %. No obvious regional wall motion abnormalities. Normal right ventricular size and function. Trace to mild mitral regurgitation. Mild tricuspid regurgitation. Previewed by: Dr Kishor Briceno (Electronically Signed) Final Date: 16 April 2024 11:43
== END 2024-04-15 15:17 | disposition home or self-care (01) ==
LOC: EC 17:00 → 6NMEDSUR 21:26
PROVIDERS: ADMIT Internal Medicine; ATTEND Internal Medicine
DX: R07.89 Other chest pain (principal); G62.9 Polyneuropathy, unspecified; E83.41 Hypermagnesemia; E03.9 Hypothyroidism, unspecified; E78.5 Hyperlipidemia, unspecified; M54.9 Dorsalgia, unspecified; M79.602 Pain in left arm; E66.9 Obesity, unspecified; Z68.28 Body mass index [BMI] 28.0-28.9, adult; R79.89 Other specified abnormal findings of blood chemistry; F10.90 Alcohol use, unspecified, uncomplicated; F12.90 Cannabis use, unspecified, uncomplicated; Z79.890 Hormone replacement therapy; Z79.899 Other long term (current) drug therapy; Z87.891 Personal history of nicotine dependence
CPT/HCPCS: 99285; 36415; 93005 ×2; 93306; 93351; 85379; 80061; 80053; 83735; 84484 ×2; 85025; 85610; 85730; 71046; G0378 ×2

== ENCOUNTER 2024-04-21 12:15 | Observation (INO) | payer MEDICARE, BC ==
[2024-04-21 13:07] LABS: Basophils % (A) 0 %; Eosinophils # (A) 0.2 k/uL (0-0.7); Eosinophils % (A) 4 %; HCT 47.3 % (39.0-53.0); HGB 15.7 gm/dL (13.0-17.5); Lymphocytes # (A) 2.3 k/uL (1.0-4.8); Lymphocytes % (A) 38 %; MCH 29.5 pg (25.0-35.0); MCHC 33.1 g/dL (31.0-37.0); MCV 88.9 fL (80.0-100.0); Mean Platelet Volume 7.9; Monocytes # (A) 0.3 k/uL (0-1.0); Monocytes % (A) 5 %; Neutrophils % (A) 50 %; Platelet Count 222 k/uL (150-450); RBC 5.32 m/uL (4.30-5.90); RDW 13.2 % (11.5-15.5); WBC 6.1 k/uL (3.8-10.6)
--- NOTE | 2024-04-21 13:29 | XR ---
EXAMINATION TYPE: XR chest 2V DATE OF EXAM: 04/21/2024 1:09 PM COMPARISON: Chest radiographs from 04/14/2024 CLINICAL INDICATION: Male, 63 years old with history of Chest Pain; TECHNIQUE: XR chest 2V Frontal and lateral views of the chest. FINDINGS: Lungs/Pleura: There is no evidence of pleural effusion, focal consolidation, or pneumothorax. Pulmonary vascularity: Unremarkable. Heart/mediastinum: Cardiomediastinal silhouette is unremarkable. Musculoskeletal: No acute osseous pathology. Other findings: None IMPRESSION: No acute cardiopulmonary disease/process. [facility], , 04/21/2024 1:26 PM
[2024-04-21 13:31] LABS: ALT 26 U/L (4-49); AST 25 U/L (17-59); African American GFR (CKD) 88 (>60 ml/min/1.73 sqM); Albumin 4.4 g/dL (3.5-5.0); Alkaline Phosphatase 56 U/L (38-126); Anion Gap 9 mmol/L; Blood Urea Nitrogen 18 mg/dL (9-20); Calcium 9.1 mg/dL (8.4-10.2); Carbon Dioxide 28 mmol/L (22-30); Chloride 104 mmol/L (98-107); Glucose 121 mg/dL (74-99); Magnesium 2.3 mg/dL (1.6-2.3); Non-African American GFR(CKD) 76 (>60 ml/min/1.73 sqM); Potassium 4.1 mmol/L (3.5-5.1); Sodium 141 mmol/L (137-145); Total Bilirubin 0.8 mg/dL (0.2-1.3); Total Protein 7.1 g/dL (6.3-8.2)
--- NOTE | 2024-04-21 13:31 | ED ---
General Adult HPI - General Chief complaint: Chest Pain Stated complaint: chest pain, L side facial numbness Time Seen by Provider: 04/21/24 12:25 Source: patient, RN notes reviewed, old records reviewed Mode of arrival: ambulatory Limitations: no limitations - History of Present Illness Initial comments: This is a 63-year-old male who presents to the emergency department complaining of chest pain that radiates to his neck and back. Patient states has been intermittent since Saturday. Patient states he was recently in the hospital for similar and they did a workup on him and everything was negative so they sent him home but since it came back he is very concerned. Patient states he also has a little tingling to his face no loss of sensation no loss of movement on the left side of his face. Patient denies any difficulty breathing shortness of breath. Patient has any nausea. Patient has any diaphoretic episode. - Related Data Home Medications Medication Instructions Recorded Confirmed Gabapentin 300 mg PO DAILY PRN 12/21/20 04/21/24 Atorvastatin [Lipitor] 20 mg PO HS 04/15/24 04/21/24 Fish Oil(Unknown Dose) 1 cap PO DAILY 04/15/24 04/21/24 Levothyroxine Sodium [Synthroid] 125 mcg PO DAILY 04/15/24 04/21/24 Vitamin E (Dl,Tocopheryl Acet) 2,000 unit PO DAILY 04/15/24 04/21/24 [Vitamin E (1000 Iu = 450 MG)] Previous Rx's Medication Instructions Recorded Famotidine [Pepcid] 20 mg PO DAILY 30 Days #30 tab 04/15/24 Allergies Allergy/AdvReac Type Severity Reaction Status Date / Time No Known Allergies Allergy Verified 04/14/24 17:15 Review of Systems ROS Statement: Those systems with pertinent positive or pertinent negative responses have been documented in the HPI. ROS Other: All systems not noted in ROS Statement are negative. Past Medical History Past Medical History: Hyperlipidemia, Hypertension, Thyroid Disorder Additional Past Medical History / Comment(s): "tingling throughout whole body" taking gabapentin History of Any Multi-Drug Resistant Organisms: None Reported Past Surgical History: Hernia Repair Additional Past Surgical History / Comment(s): colonoscopy, thyroidectomy Past Anesthesia/Blood Transfusion Reactions: No Reported Reaction Past Psychological History: No Psychological Hx Reported Smoking Status: Former smoker Past Alcohol Use History: Occasional Past Drug Use History: None Reported General Exam - General Exam Comments Initial Comments: GENERAL: Patient is well-developed and well-nourished. Patient is nontoxic and well- hydrated and is in mild distress. ENT: Neck is soft and supple. No significant lymphadenopathy is noted. Oropharynx is clear. Moist mucous membranes. Neck has full range of motion without eliciting any pain. EYES: The sclera were anicteric and conjunctiva were pink and moist. Extraocular movements were intact and pupils were equal round and reactive to light. Eyelids were unremarkable. PULMONARY: Unlabored respirations. Good breath sounds bilaterally. No audible rales rhonchi or wheezing was noted. CARDIOVASCULAR: There is a regular rate and rhythm without any murmurs gallops or rubs. ABDOMEN: Soft and nontender with normal bowel sounds. SKIN: Skin is clear with no lesions or rashes and otherwise unremarkable. NEUROLOGIC: Patient is alert and oriented x3. Cranial nerves II through XII are grossly intact. Motor and sensory are also intact. Normal speech, volume and content. Symmetrical smile. MUSCULOSKELETAL: Normal extremities with adequate strength and full range of motion. LYMPHATICS: No significant lymphadenopathy is noted PSYCHIATRIC: Normal psychiatric evaluation. Limitations: no limitations Course Vital Signs 04/21/24 04/21/24 12:22 14:17 Temperature 98 F Pulse Rate 74 67 Pulse Rate [ 67 Education Administrator ] Respiratory 16 18 Rate Blood Pressure 154/95 128/68 O2 Sat by Pulse 99 98 Oximetry Medical Decision Making - Medical Decision Making EKG is interpreted by myself but EKG shows a sinus rhythm at 85 bpm AR was 181 QRS is 125 QT interval 373 QTc is 415. Patient's EKG shows no ST segment ovation patient's EKG does show right bundle branch block Was pt. sent in by a medical professional or institution (, PA, DISP[employer], urgent care, hospital, or alf...) When possible be specific @ -No Did you speak to anyone other than the patient for history (EMS, parent, family, police, friend...)? What history was obtained from this source @ -No Did you review nursing and triage notes (agree or disagree)? Why? @ -I reviewed and agree with nursing and triage notes Were old charts reviewed (outside hosp., previous admission, EMS record, old EKG, old radiological studies, urgent care reports/EKG's, alf records)? Report findings @ -No old charts were reviewed Differential Diagnosis? @ -MDM differential chest EKG interpreted by me (3pts min.). @ -As above X-rays interpreted by me (1pt min.). @ -Chest x-ray shows no acute abnormality CT interpreted by me (1pt min.). @ -None done U/S interpreted by me (1pt. min.). @ -None done What testing was considered but not performed or refused? (CT, X-rays, U/S, labs)? Why? @ -None What meds were considered but not given or refused? Why? @ -None Did you discuss the management of the patient with other professionals (professionals i.e. , PA, [employer], lab, RT, psych nurse, psychologist social, financial recording clerk, teacher, aoc director combat operations officer, trimming caser)? Give summary @ -I spoke with [facility] he agreed to admit the patient admit the patient wrote admitting orders Was smoking cessation discussed for >3mins.? @ -No Was critical care preformed (if so, how long)? @ -No Were there social determinants of health that impacted care today? How? (Homelessness, low income, unemployed, alcoholism, drug addiction, transportation, low edu. Level, literacy, decrease access to med. care, care home, rehab)? @ -No Was there de-escalation of care discussed even if they declined (Discuss DNR or withdrawal of care, Hospice)? DNR status @ -No What co-morbidities impacted this encounter? (DM, HTN, Smoking, COPD, CAD, Cancer, CVA, ARF, Chemo, Hep., AIDS, mental health diagnosis, sleep apnea, morbid obesity)? @ -None Was patient admitted / discharged? Hospital course, mention meds given and route, prescriptions, significant lab abnormalities, going to OR and other pertinent info. @ -Patient states he has a calcium score of over 400. Patient states the chest pain continues to be intermittent. Patient's lab work shows no acute O'Maurisio. Patient's x-ray shows no acute normality. Patient will be admitted to [facility] with a consult to cardiology Undiagnosed new problem with uncertain prognosis? @ -No Drug Therapy requiring intensive monitoring for toxicity (Heparin, Nitro, Insulin, Cardizem)? @ -No Were any procedures done? @ -No Diagnosis/symptom? @ -Chest Acute, or Chronic, or Acute on Chronic? @ -Acute Uncomplicated (without systemic symptoms) or Complicated (systemic symptoms)? @ -Complicate Side effects of treatment? @ -No Exacerbation, Progression, or Severe Exacerbation? @ -No Poses a threat to life or bodily function? How? (Chest pain, USA, VA, pneumonia, PE, COPD, DKA, ARF, appy, cholecystitis, CVA, Diverticulitis, Homicidal, Suicidal, threat to staff... and all critical care pts) @ -Yes this could lead to an VA and endorgan dysfunction - Lab Data Result diagrams: 04/21/24 12:40 04/21/24 12:40 Lab Results 04/21/24 04/21/24 04/21/24 Range/Units 12:40 12:40 12:40 WBC 6.1 (3.8-10.6) k/uL RBC 5.32 (4.30-5.90) m/uL Hgb 15.7 (13.0-17.5) gm/dL Hct 47.3 (39.0-53.0) % MCV 88.9 (80.0-100.0) fL MCH 29.5 (25.0-35.0) pg MCHC 33.1 (31.0-37.0) g/dL RDW 13.2 (11.5-15.5) % Plt Count 222 (150-450) k/uL MPV 7.9 Neutrophils % 50 % Lymphocytes % 38 % Monocytes % 5 % Eosinophils % 4 % Basophils % 0 % Neutrophils # 3.0 (1.3-7.7) k/uL Lymphocytes # 2.3 (1.0-4.8) k/uL Monocytes # 0.3 (0-1.0) k/uL Eosinophils # 0.2 (0-0.7) k/uL Basophils # 0.0 (0-0.2) k/uL PT 11.3 (10.0-12.5) sec INR 1.0 (<1.2) APTT 26.0 (22.0-30.0) sec Sodium 141 (137-145) mmol/L Potassium 4.1 (3.5-5.1) mmol/L Chloride 104 (98-107) mmol/L Carbon Dioxide 28 (22-30) mmol/L Anion Gap 9 mmol/L BUN 18 (9-20) mg/dL Creatinine 1.03 (0.66-1.25) mg/dL Est GFR (CKD-EPI)AfAm 88 (>60 ml/min/1.73 sqM) Est GFR (CKD-EPI)NonAf 76 (>60 ml/min/1.73 sqM) Glucose 121 H (74-99) mg/dL Calcium 9.1 (8.4-10.2) mg/dL Magnesium 2.3 (1.6-2.3) mg/dL Total Bilirubin 0.8 (0.2-1.3) mg/dL AST 25 (17-59) U/L ALT 26 (4-49) U/L Alkaline Phosphatase 56 (38-126) U/L Troponin I (0.000-0.034) ng/mL Total Protein 7.1 (6.3-8.2) g/dL Albumin 4.4 (3.5-5.0) g/dL 04/21/24 Range/Units 12:40 WBC (3.8-10.6) k/uL RBC (4.30-5.90) m/uL Hgb (13.0-17.5) gm/dL Hct (39.0-53.0) % MCV (80.0-100.0) fL MCH (25.0-35.0) pg MCHC (31.0-37.0) g/dL RDW (11.5-15.5) % Plt Count (150-450) k/uL MPV Neutrophils % % Lymphocytes % % Monocytes % % Eosinophils % % Basophils % % Neutrophils # (1.3-7.7) k/uL Lymphocytes # (1.0-4.8) k/uL Monocytes # (0-1.0) k/uL Eosinophils # (0-0.7) k/uL Basophils # (0-0.2) k/uL PT (10.0-12.5) sec INR (<1.2) APTT (22.0-30.0) sec Sodium (137-145) mmol/L Potassium (3.5-5.1) mmol/L Chloride (98-107) mmol/L Carbon Dioxide (22-30) mmol/L Anion Gap mmol/L BUN (9-20) mg/dL Creatinine (0.66-1.25) mg/dL Est GFR (CKD-EPI)AfAm (>60 ml/min/1.73 sqM) Est GFR (CKD-EPI)NonAf (>60 ml/min/1.73 sqM) Glucose (74-99) mg/dL Calcium (8.4-10.2) mg/dL Magnesium (1.6-2.3) mg/dL Total Bilirubin (0.2-1.3) mg/dL AST (17-59) U/L ALT (4-49) U/L Alkaline Phosphatase (38-126) U/L Troponin I <0.012 (0.000-0.034) ng/mL Total Protein (6.3-8.2) g/dL Albumin (3.5-5.0) g/dL Disposition Clinical Impression: Chest pain Disposition: ADMITTED IP TO THIS [facility] Referrals: Vin Woodward MD [Primary Care Provider] - 1-2 days Time of Disposition: 15:38
[2024-04-21 13:35] LABS: Prothrombin Time 11.3 sec (10.0-12.5)
[2024-04-21] MEDS: ASPIRIN 81 MG PO STA (14:27)
[2024-04-21] MEDS: NITROGLYCERIN OINT 1 INCH/GM PACKET TOPICAL STA (14:27)
[2024-04-21] MEDS ORDERED: NITROGLYCERIN SL TABS 0.4 MG TAB SUBLINGUAL PRN (15:47)
[2024-04-21] MEDS ORDERED: GABAPENTIN 300 MG CAP PO PRN (15:59)
[2024-04-21] MEDS: HEPARIN SODIUM,PORCINE 5,000 UNIT/ML 1 ML VIAL SQ SCH (16:26)
--- NOTE | 2024-04-21 16:47 | P.HPIM ---
History of Present Illness H&P Date: 04/21/24 Patient is a 63-year-old male with history of hypothyroidism, hyperlipidemia, neuropathy, presenting with chest pain. Patient was recently discharged from our facility after a negative cardiac stress test. Echocardiogram at that time showed LVEF 55 to 60%. He claims that his pain is very similar to how it was last time. This time, he was swimming and started noticing sharp substernal chest pain radiating to his left shoulder. This happened on Saturday. Over time has pain resolved. However this morning he woke up and despite walking he started having similar pain. Also experiencing some paresthesias to his left face. He claims that his pain is a 5 out of 10, sharp in nature. Occasionally goes to his back as well. He denies any shortness of breath abdominal pain, nausea, vomiting, urinary or bowel complaints. He does claim that he was feeling feverish but denies any chills. Denies any sick contacts or travel history. In the ED, temperature was 98, pulse 74, respiratory 16, blood pressure 154/95, saturating at 99% on room air. WBC 6.1, hemoglobin 15.7, potassium 4.1, creatinine 1.03, magnesium 2.3, troponin negative. EKG independently interpreted, shows sinus rhythm with no ST-T wave changes, right bundle branch block. Chest x-ray independently interpreted, shows no opacities. Patient admitted for further chest pain workup, cardiology consulted. Pertinent positives and negatives as discussed in HPI, a complete review of systems was performed and all other systems are negative. Patient seen and examined at bedside. Vital signs reviewed General: nontoxic, no distress, appears at stated age Derm: warm, dry Head: atraumatic, normocephalic, symmetric Eyes: EOMI, no lid lag, anicteric sclera, pupils equal round reactive to light ENT: Nose and ears atraumatic Neck: No thyromegaly, supple Mouth: no lip lesion, mucus membranes moist Cardiovascular: S1S2 reg, no murmur, no edema Lungs: clear to auscultation bilateral, no rhonchi, no rales, no wheeze, no accessory muscle use Abdominal: soft, nontender to palpation, no guarding, no appreciable or ganomegaly Ext: no gross muscle atrophy, muscle strength muscle strength 5 out of 5 in all 4 extremities, no contractures Neuro: CN II-XII grossly intact Psych: Alert, oriented, appropriate affect Assessment/Plan: Active: Chest pain, rule out ACS -Patient was recently in the hospital with similar complaints, stress test negative at that time -Reportedly, patient has high calcium score on recent CT -Cardiology consulted, consider cardiac cath -Continue aspirin 81 mg, atorvastatin 20 mg -Continue on telemetry -Trend troponin Chronic: GERD Dyslipidemia Neuropathy The patient is admitted with an anticipated less than 2 midnight stay as observation status for evaluation of chest pain. Surrogate decision-maker: Son CODE STATUS: Full code DVT prophylaxis: Subcu heparin Anticipated discharge date: Pending clinical course Anticipated discharge place: Pending clinical course A total of 55 minutes was spent on the care of this complex patient more than 50% of the time was spent in counseling and care coordination. Past Medical History Past Medical History: Hyperlipidemia, Hypertension, Thyroid Disorder Additional Past Medical History / Comment(s): "tingling throughout whole body" taking gabapentin History of Any Multi-Drug Resistant Organisms: None Reported Past Surgical History: Hernia Repair Additional Past Surgical History / Comment(s): colonoscopy, thyroidectomy Past Anesthesia/Blood Transfusion Reactions: No Reported Reaction Past Psychological History: No Psychological Hx Reported Smoking Status: Former smoker Past Alcohol Use History: Occasional Past Drug Use History: None Reported Medications and Allergies Home Medications Medication Instructions Recorded Confirmed Type Gabapentin 300 mg PO DAILY PRN 12/21/20 04/21/24 History Atorvastatin [Lipitor] 20 mg PO HS 04/15/24 04/21/24 History Famotidine [Pepcid] 20 mg PO DAILY 30 Days #30 tab 04/15/24 04/21/24 Rx Fish Oil(Unknown Dose) 1 cap PO DAILY 04/15/24 04/21/24 History Levothyroxine Sodium [Synthroid] 125 mcg PO DAILY 04/15/24 04/21/24 History Vitamin E (Dl,Tocopheryl Acet) 2,000 unit PO DAILY 04/15/24 04/21/24 History [Vitamin E (1000 Iu = 450 MG)] Allergies Allergy/AdvReac Type Severity Reaction Status Date / Time No Known Allergies Allergy Verified 04/14/24 17:15 Physical Exam Vitals: Vital Signs Temp Pulse Pulse Resp BP Pulse Ox 04/21/24 14:17 67 67 18 128/68 98 04/21/24 12:22 98 F 74 16 154/95 99 Intake and Output 04/21/24 04/21/24 04/21/24 06:59 14:59 22:59 Other: Weight 92.079 kg Results CBC & Chem 7: 04/21/24 12:40 04/21/24 12:40 Labs: Abnormal Lab Results - Last 24 Hours (Table) 04/21/24 Range/Units 12:40 Glucose 121 H (74-99) mg/dL
[2024-04-21] MEDS ORDERED: NITROGLYCERIN OINT 1 INCH/GM PACKET TOPICAL SCH (18:00)
[2024-04-21] MEDS: ATORVASTATIN 20 MG TAB PO SCH (20:08)
[2024-04-21] MEDS: ACETAMINOPHEN TAB 325 MG TAB PO PRN (22:58)
[2024-04-22] MEDS: LEVOTHYROXINE 125 MCG TAB PO SCH (06:42)
[2024-04-22 08:19] VITALS: BP 120/70; PULSE 55; RESP 16; TEMP 98.4
[2024-04-22] MEDS ORDERED: ASPIRIN 325 MG TAB PO SCH (09:00)
[2024-04-22] MEDS: FAMOTIDINE 20 MG TAB PO SCH (09:08)
[2024-04-22] MEDS: ASPIRIN 81 MG PO SCH (09:08)
--- NOTE | 2024-04-22 09:34 | P.DS ---
Providers Date of admission: 04/21/24 15:53 Expected date of discharge: 04/22/24 Attending physician: Alen William Consults: 04/21/24 15:47 Consult Physician Urgent Consulting Provider: [facility] Reason/Comments: Chest pain Do you want consulting provider notified?: Yes Primary care physician: Vin Devine [facility] Hospital Course: Discharge Diagnosis: Atypical chest pain GERD Dyslipidemia Neuropathy Hospital Course: 63-year-old male with history of hypothyroidism, hyperlipidemia, neuropathy, presenting with chest pain. Patient was recently discharged from our facility after a negative cardiac stress test. Echocardiogram at that time showed LVEF 55 to 60%. In the ED, temperature was 98, pulse 74, respiratory 16, blood pressure 154/95, saturating at 99% on room air. WBC 6.1, hemoglobin 15.7, potassium 4.1, creatinine 1.03, magnesium 2.3, troponin negative. EKG independently interpreted, shows sinus rhythm with no ST-T wave changes, right bundle branch block. Chest x-ray independently interpreted, shows no opacities. Patient admitted for further chest pain workup, cardiology consulted. ACS ruled out. Patient being discharged home. Follow-up with PCP and cardiology. Patient seen and examined at bedside. Vital signs reviewed and stable. General: Nontoxic, no distress, appears at stated age Derm: Warm, dry Head: Atraumatic, normocephalic, symmetric Eyes: EOMI, no lid lag, anicteric sclera Mouth: No lip lesion, mucus membranes moist Cardiovascular: S1S2 reg, no murmur Lungs: CTA bilateral, no rhonchi, no rales, no accessory muscle use Abdominal: Soft, nontender to palpation, no guarding, no appreciable organomegaly Ext: No gross muscle atrophy, no edema, no contractures Neuro: CN II-XI grossly intact, no focal neuro deficits Psych: Alert, oriented, appropriate affect A total of 36 minutes of time were spent preparing this complex discharge summary. Patient was discharged on 04/22/24 at 933. Plan - Discharge Summary Discharge Rx Participant: No New Discharge Prescriptions: New Aspirin 81 mg PO DAILY #90 tab Continue Gabapentin 300 mg PO DAILY PRN PRN Reason: Pain Fish Oil(Unknown Dose) 1 cap PO DAILY Levothyroxine Sodium [Synthroid] 125 mcg PO DAILY Atorvastatin [Lipitor] 20 mg PO HS Vitamin E (Dl,Tocopheryl Acet) [Vitamin E (1000 Iu = 450 MG)] 2,000 unit PO DAILY Famotidine [Pepcid] 20 mg PO DAILY 30 Days #30 tab Discharge Medication List Gabapentin 300 mg PO DAILY PRN 12/21/20 [History] Atorvastatin [Lipitor] 20 mg PO HS 04/15/24 [History] Famotidine [Pepcid] 20 mg PO DAILY 30 Days #30 tab 04/15/24 [Rx] Fish Oil(Unknown Dose) 1 cap PO DAILY 04/15/24 [History] Levothyroxine Sodium [Synthroid] 125 mcg PO DAILY 04/15/24 [History] Vitamin E (Dl,Tocopheryl Acet) [Vitamin E (1000 Iu = 450 MG)] 2,000 unit PO DAILY 04/15/24 [History] Aspirin 81 mg PO DAILY #90 tab 04/22/24 [Rx] Follow up Appointment(s)/Referral(s): Kishor Briceno MD [Medical Doctor] - 1 Week (as scheduled in office) Vin Woodward MD [Primary Care Provider] - 1-2 days Patient Instructions/Handouts: Noncardiac Chest Pain (DC) Activity/Diet/Wound Care/Special Instructions: Please see your PCP and cardiology. Discharge Disposition: HOME SELF-CARE
--- NOTE | 2024-04-22 11:12 | P.CRDCN ---
History of Present Illness Consult date: 04/22/24 Consult reason: chest pain History of present illness: This is a 63-year-old male with PMH hyperlipidemia, GERD, hypothyroidism. We have been asked to evaluate the patient for chest pain. Patient had a recent hospitalization for chest pain and at that time underwent echocardiogram and stress echocardiogram which was normal and patient was discharged home. Patient states that after he left on Saturday the symptoms came back the same way. He was feeling fine on but on Saturday he was at the gym doing a little bit of exercise and the chest pain came back. On Saturday he went for 10 minutes swim in the pool and on the drive home from the gym, he also had chest pain which went on all day Saturday and Saturday. On Saturday he had a little bit of chest pain as well as yesterday. He has subsequently developed sensation on the left side of his face. Chest pain is not worse with deep breathing or with movement. He denies shortness of breath no palpitations and no lower extremity edema. He does not experience any chest pain with exercise. He states he goes to the gym 3 times per week. He denies cardiac history. He is a non-smoker. At this time, patient has a little bit of chest pain. He denies history of GERD. Patient also states that his primary care doctor said his cholesterol level came back high recently at 255 and he underwent calcium score CT which came back elevated at 450 range. Patient was started on statin. -EKG:sinus mechanism with RBBB, nonspecific st changes. -Chest x-ray: no acute findings -Laboratory studies: CBC, INR, electrolytes renal function liver function test all within normal limits. Troponin negative x 3. Recent triglycerides 98, cholesterol 139, LDL 82, HDL 36. -Home cardiac medications: Aspirin 81 mg daily, atorvastatin 20 mg at bedtime -Stress echocardiogram performed 04/15/2024: Reveals normal treadmill echo to stress test. Good exercise tolerance achieving 12.1 METS. Normal hemodynamic and clinical response to treadmill exercise. Nonischemic EKG and echocardiographic response to treadmill exercise. -Echocardiogram performed on 04/16/2024: EF 55 to 60%. No obvious regional wall motion abnormalities. Normal right ventricular size and function. Trace to mild mitral regurgitation. Mild tricuspid regurgitation. Review Of Systems: At the time of my exam: CONSTITUTIONAL: Denies fever or chills. HEENT: Denies blurred vision, vision changes, or eye pain. Denies hemoptysis CARDIOVASCULAR: Mild chest pain. Denies orthopnea. Denies PND. Denies palpitations RESPIRATORY: Denies shortness of breath. GASTROINTESTINAL: Denies abdominal pain. Denies nausea or vomiting. HEMATOLOGIC: Denies bleeding disorders. GENITOURINARY: Denies any blood in urine. SKIN: Denies puritis. Denies rash. Physical examination: Gen: This is a 63-year-old male in no acute distress, appears anxious. VS: reviewed HEENT: Head is atraumatic, normocephalic. Pupils equal, round. Sclerae is anicteric. NECK: Supple. No JVD. LUNGS: Clear to auscultation. No wheezes or rhonchi. No intercostal retractions. HEART: Regular rate and rhythm. No murmur. ABDOMEN: Soft No tenderness. EXTREMITIES: No pedal edema. No calf tenderness. NEUROLOGICAL: Patient is awake, alert and oriented x3. Assessment: Atypical chest pain, acute coronary syndrome has been ruled out with stress test, negative troponins Hyperlipidemia GERD Hypothyroidism Plan: Resume patient's home cardiac medications No further workup at this time. Patient to ambulate and assess for pain with activity. If patient is pain-free, he is cleared for discharge from cardiology perspective and may follow-up in the office as already scheduled. Thank you kindly for this consultation. Nurse practitioner note has been reviewed, I agree with documented findings and plan of care. Patient was seen and examined. Past Medical History Past Medical History: Hyperlipidemia, Thyroid Disorder Additional Past Medical History / Comment(s): "tingling throughout whole body" taking gabapentin History of Any Multi-Drug Resistant Organisms: None Reported Past Surgical History: Hernia Repair Additional Past Surgical History / Comment(s): colonoscopy, thyroidectomy Past Anesthesia/Blood Transfusion Reactions: No Reported Reaction Past Psychological History: No Psychological Hx Reported Smoking Status: Former smoker Past Alcohol Use History: Occasional Past Drug Use History: None Reported Medications and Allergies Home Medications Medication Instructions Recorded Confirmed Type Gabapentin 300 mg PO DAILY PRN 12/21/20 04/21/24 History Atorvastatin [Lipitor] 20 mg PO HS 04/15/24 04/21/24 History Famotidine [Pepcid] 20 mg PO DAILY 30 Days #30 tab 04/15/24 04/21/24 Rx Fish Oil(Unknown Dose) 1 cap PO DAILY 04/15/24 04/21/24 History Levothyroxine Sodium [Synthroid] 125 mcg PO DAILY 04/15/24 04/21/24 History Vitamin E (Dl,Tocopheryl Acet) 2,000 unit PO DAILY 04/15/24 04/21/24 History [Vitamin E (1000 Iu = 450 MG)] Aspirin 81 mg PO DAILY #90 tab 04/22/24 Rx Allergies Allergy/AdvReac Type Severity Reaction Status Date / Time No Known Allergies Allergy Verified 04/14/24 17:15 Physical Exam Vitals: Vital Signs Temp Pulse Pulse Pulse Resp BP BP 04/22/24 04:04 97.7 F 53 L 15 116/73 04/21/24 23:51 97.7 F 60 18 109/72 04/21/24 23:01 97.5 F L 55 L 18 130/82 04/21/24 22:00 58 L 116/68 04/21/24 21:00 54 L 100/59 04/21/24 20:00 59 L 111/74 04/21/24 18:00 62 18 120/71 04/21/24 16:05 63 16 122/91 04/21/24 14:17 67 67 18 128/68 04/21/24 12:22 98 F 74 16 154/95 Pulse Ox 04/22/24 04:04 97 04/21/24 23:51 100 04/21/24 23:01 97 04/21/24 22:00 04/21/24 21:00 04/21/24 20:00 04/21/24 18:00 97 04/21/24 16:05 97 04/21/24 14:17 98 04/21/24 12:22 99 Intake and Output 04/21/24 04/22/24 04/22/24 22:59 06:59 14:59 Other: # Voids 3 Weight 92.079 kg Results 04/21/24 12:40 04/21/24 12:40 Cardiac Enzymes 04/21/24 04/21/24 04/21/24 Range/Units 12:40 12:40 16:14 AST 25 (17-59) U/L Troponin I <0.012 <0.012 (0.000-0.034) ng/mL 04/21/24 Range/Units 19:34 AST (17-59) U/L Troponin I <0.012 (0.000-0.034) ng/mL Coagulation 04/21/24 Range/Units 12:40 PT 11.3 (10.0-12.5) sec APTT 26.0 (22.0-30.0) sec CBC 04/21/24 Range/Units 12:40 WBC 6.1 (3.8-10.6) k/uL RBC 5.32 (4.30-5.90) m/uL Hgb 15.7 (13.0-17.5) gm/dL Hct 47.3 (39.0-53.0) % Plt Count 222 (150-450) k/uL Comprehensive Metabolic Panel 04/21/24 Range/Units 12:40 Sodium 141 (137-145) mmol/L Potassium 4.1 (3.5-5.1) mmol/L Chloride 104 (98-107) mmol/L Carbon Dioxide 28 (22-30) mmol/L BUN 18 (9-20) mg/dL Creatinine 1.03 (0.66-1.25) mg/dL Glucose 121 H (74-99) mg/dL Calcium 9.1 (8.4-10.2) mg/dL AST 25 (17-59) U/L ALT 26 (4-49) U/L Alkaline Phosphatase 56 (38-126) U/L Total Protein 7.1 (6.3-8.2) g/dL Albumin 4.4 (3.5-5.0) g/dL Current Medications Generic Name Dose Route Start Last Admin Trade Name Freq PRN Reason Stop Dose Admin Acetaminophen 650 mg 04/21/24 22:50 04/21/24 22:58 Acetaminophen Tab 325 Mg Tab PO 650 mg Q6HR PRN Administration Fever and/ or Pain Aspirin 81 mg 04/22/24 09:00 Aspirin 81 Mg PO DAILY SARAH Atorvastatin Calcium 20 mg 04/21/24 21:00 04/21/24 20:08 Atorvastatin 20 Mg Tab PO 20 mg HS SARAH Administration Famotidine 20 mg 04/22/24 09:00 Famotidine 20 Mg Tab PO DAILY SARAH Gabapentin 300 mg 04/21/24 15:59 Gabapentin 300 Mg Cap PO DAILY PRN Pain Heparin Sodium (Porcine) 5,000 unit 04/21/24 16:00 04/22/24 00:20 Heparin Sodium,Porcine 5,000 Unit/Ml 1 Ml Vial SQ Not Given Q8HR SARAH Levothyroxine Sodium 125 mcg 04/22/24 06:30 04/22/24 06:42 Levothyroxine 125 Mcg Tab PO 125 mcg DAILY@0630 SARAH Administration Nitroglycerin 0.4 mg 04/21/24 15:47 Nitroglycerin Sl Tabs 0.4 Mg Tab SUBLINGUAL Q5M PRN Chest Pain Intake and Output 04/21/24 04/22/24 04/22/24 22:59 06:59 14:59 Other: # Voids 3 Weight 92.079 kg 04/21/24 12:40 04/21/24 12:40
[2024-04-22 11:34] LABS: Chol/HDL Ratio 3.49 Ratio; LDL Cholesterol,Calculated 69.2 mg/dL (0.0-131.0)
== END 2024-04-22 11:00 | disposition home or self-care (01) ==
LOC: EC 12:15 → 6NMEDSUR 15:53
PROVIDERS: ADMIT Student in an Organized Health Care Education/Training Program; ATTEND Student in an Organized Health Care Education/Training Program
DX: R07.89 Other chest pain (principal); K21.9 Gastro-esophageal reflux disease without esophagitis; E78.5 Hyperlipidemia, unspecified; G62.9 Polyneuropathy, unspecified; I10 Essential (primary) hypertension; E03.9 Hypothyroidism, unspecified; Z79.82 Long term (current) use of aspirin; Z79.890 Hormone replacement therapy; Z79.899 Other long term (current) drug therapy; Z87.891 Personal history of nicotine dependence
CPT/HCPCS: 99285; 36415; 93005 ×2; 80061; 80053; 83735; 84484; 85025; 85610; 85730; 71046; G0378 ×2